=== PATIENT | female | born 1980 | race African-American/Black ===

== ENCOUNTER 2018-06-01 01:58 | Emergency (ER) | payer OTHER ==
[~2018-06-01] VITALS: Ht 154.9 cm; Wt 81.7 kg
[~2018-06-01 01:58] MED LIST: NORCO 5-325 TA1 EACH PO; PENICILLIN VK500 M1 PO
[2018-06-01] MEDS ORDERED: GUAIFEN-CODEINE10 ML PO (02:21)
[2018-06-01] MEDS ORDERED: MOBIC15 MG PO (02:21)
[2018-06-01 03:12] VITALS: BP 141/92
== END 2018-06-01 03:13 | disposition home or self-care (01) ==
LOC: ER 01:58
DX: J06.9 Acute upper respiratory infection, unspecified (principal)